=== PATIENT | female | born 1935 | race Caucasian/White ===

== ENCOUNTER 2017-11-03 13:04 | Emergency (ER) | payer MEDICARE, BC ==
[~2017-11-03] VITALS: Ht 157.5 cm; Wt 57.0 kg
[~2017-11-03 13:04] MED LIST: AMIT25TA19 PO; ASPI-144 PO; DONE10TA6 PO; DULO-31 PO; KEN0.1O TP; PERP2TAB5 PO
[2017-11-03 13:51] VITALS: BP 129/64
== END 2017-11-03 17:28 | disposition home or self-care (01) ==
LOC: ER 13:09
DX: M25.532 Pain in left wrist (principal); I10 Essential (primary) hypertension; K21.9 Gastro-esophageal reflux disease without esophagitis; E11.9 Type 2 diabetes mellitus without complications; F03.90 Unspecified dementia, unspecified severity, without behavioral disturbance, psychotic disturbance, mood disturbance, and anxiety; Z79.82 Long term (current) use of aspirin; Z79.899 Other long term (current) drug therapy
CPT/HCPCS: 29125; 73110; 99284; A4565; A6449

== ENCOUNTER 2020-11-06 13:15 | Emergency (ER) | payer MEDICARE, BC ==
[~2020-11-06] VITALS: Ht 160 cm; Wt 55.4 kg
[~2020-11-06 13:15] MED LIST changes: -DONE10TA6 PO; +DONE10TA7 PO
[2020-11-06 13:40] VITALS: BP 159/113
[2020-11-06] MEDS ORDERED: PRED20TA PO (14:02)
[2020-11-06] MEDS ORDERED: DIPH25CA83 PO (14:03)
== END 2020-11-06 14:18 | disposition home or self-care (01) ==
LOC: ER 13:15
DX: L50.9 Urticaria, unspecified (principal); T49.0X5A Adverse effect of local antifungal, anti-infective and anti-inflammatory drugs, initial encounter; R07.89 Other chest pain; M79.662 Pain in left lower leg; M79.661 Pain in right lower leg; I10 Essential (primary) hypertension; K21.9 Gastro-esophageal reflux disease without esophagitis; E11.9 Type 2 diabetes mellitus without complications; F32.9 Major depressive disorder, single episode, unspecified; Z87.440 Personal history of urinary (tract) infections; Z88.1 Allergy status to other antibiotic agents; Z79.899 Other long term (current) drug therapy; Y92.89 Other specified places as the place of occurrence of the external cause
CPT/HCPCS: 99283